=== PATIENT | male | born 1970 | race American Indian/Alaskan Native ===

== ENCOUNTER 2016-07-25 06:04 | Emergency (ER) | payer MEDICAID, OTHER ==
[2016-07-25 08:26] LABS: Basophils % (Auto) 0.5 % (0.0-1.8); Eosinophils % (Auto) 2.3 % (0.0-4.3); Hematocrit 28.8 % (35.5-45.6); Hemoglobin 9.4 gm/dl (11.8-15.2); Mean Corpuscular HGB Conc 33 % (32-34); Mean Corpuscular Hemoglobin 31 pg (28-32); Mean Corpuscular Volume 94 fl (84-94); Platelet Count 379 K/mm3 (140-440); Red Blood Count 3.07 M/mm3 (3.65-5.03); Red Cell Distribution Width 14.4 % (13.2-15.2)
[2016-07-25 08:55] LABS: Anion Gap 18 mmol/L; Blood Urea Nitrogen 10 mg/dL (9-20); Calcium 8.4 mg/dL (8.4-10.2); Carbon Dioxide 24 mmol/L (22-30); Chloride 102.1 mmol/L (98-107); Glucose 110 mg/dL (75-100); Sodium 140 mmol/L (137-145)
[2016-07-25 09:12] LABS: Urine Drugs of Abuse Note Disclamer
[2016-07-25 09:22] LABS: Bilirubin,Urine NEG (Negative); Blood,Urine NEG (Negative); Ketones,Urine TR mg/dL (Negative); Leukocyte Esterase,Urine NEG (Negative); Mucus,Urine 3+ /HPF; Nitrite,Urine NEG (Negative)
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
--- NOTE | 2016-07-25 12:42 | XRay Report ---
Chest 2 views: Compared to 06/23/15. History: Shortness of breath. Findings: Normal cardiomediastinal silhouette. Trachea is midline. Elevated right diaphragm compared to left and compared to previous study. Very faint infiltrates are noted the right lower lobe probably suggestive of pneumonitis. Normal CP angles. Impression: Elevated right diaphragm. Infiltrates right lower lobe.
[2016-07-25] MEDS ORDERED: PROVENTIL IH ONE (14:02)
[2016-07-25] MEDS ORDERED: PERCOCET 5/325 PO ONE (14:02)
[2016-07-25 14:24] VITALS: BP 147/77
[2016-07-25] MEDS ORDERED: ELIQUIS PO ONE (15:27)
--- NOTE | 2016-07-26 07:36 | Vascular Lab Report ---
Right Lower Extremity Venous Duplex Study: Reason for Exam: Right leg swelling. Comments on the Right: Acute deep venous thrombosis is visualized in the peroneal vein extending into the above-knee popliteal vein.. The remaining veins visualized are freely compressible without evidence of internal echogenicity. Spontaneous and phasic flow is present proximally. Comments on the Left: A limited duplex study was done of the proximal veins of the left lower extremity. All veins visualized are freely compressible without evidence of internal echogenicity. Flow is spontaneous and phasic throughout. No evidence of acute or chronic thrombus is seen in any of the vessels visualized. Impression: Acute deep venous thromboses in the right lower extremity.
== END 2016-07-25 16:04 | disposition left against medical advice (07) ==
LOC: ED 06:04
DX: R09.02 Hypoxemia (principal); I82.511 Chronic embolism and thrombosis of right femoral vein; F29 Unspecified psychosis not due to a substance or known physiological condition; Z88.8 Allergy status to other drugs, medicaments and biological substances; I10 Essential (primary) hypertension; F41.9 Anxiety disorder, unspecified; F17.200 Nicotine dependence, unspecified, uncomplicated; F12.10 Cannabis abuse, uncomplicated
CPT/HCPCS: 36415; 71020; 80048; 80307; 81001; 85025; 85379; 93971; 94640; 99284; G0480; 80320

== ENCOUNTER 2018-12-06 21:46 | Inpatient (IN) | payer OTHER ==
--- NOTE | 2018-12-06 21:59 | Event Note ---
ED Screening Note Date of service: 12/06/18 Time: 21:55 ED Screening Note: This is a 48 y.o. M. that presents to the ER with SOB, edema. Reports edema for 1 week. Current smoker 5 cigarettes per day. This initial assessment/diagnostic orders/clinical plan/treatment(s) is/are subject to change based on patients health status, clinical progression and re- assessment by fellow clinical providers in the ED. Further treatment and workup at subsequent clinical providers discretion. Patient/guardian urged not to elope from the ED as their condition may be serious if not clinically assessed and managed. Initial orders include: Labs and CXR
[2018-12-06 22:47] LABS: Basophils # (Auto) 0.1 K/mm3 (0.0-0.1); Basophils % (Auto) 0.5 % (0.0-1.8); Eosinophils # (Auto) 0.1 K/mm3 (0.0-0.4); Eosinophils % (Auto) 1.2 % (0.0-4.3); Hematocrit 36.2 % (35.5-45.6); Hemoglobin 11.5 gm/dl (11.8-15.2); Lymphocytes # (Auto) 0.8 K/mm3 (1.2-5.4); Lymphocytes % (Auto) 6.4 % (13.4-35.0); Mean Corpuscular HGB Conc 32 % (32-34); Mean Corpuscular Volume 95 fl (84-94); Monocytes # (Auto) 1.4 K/mm3 (0.0-0.8); Monocytes % (Auto) 11.1 % (0.0-7.3); Platelet Count 273 K/mm3 (140-440); Red Blood Count 3.81 M/mm3 (3.65-5.03); Red Cell Distribution Width 14.6 % (13.2-15.2)
--- NOTE | 2018-12-06 22:47 | XRay Report ---
CHEST 2 VIEWS INDICATION: chest pain, edema. COMPARISON: 07/25/2016. FINDINGS: Support devices: None. Heart: Cardiac enlargement. Lungs/Pleura: Persistent elevation of the left hemidiaphragm. Bilateral interstitial/airspace disease is greater on the right.. IMPRESSION: Bilateral interstitial/airspace disease. Edema is favored. Signer Name: Satinder Bryson MD Signed: 12/06/2018 10:43 PM Workstation Name: [id number]
[2018-12-06] MEDS: DUONEB *Not for PRN Use IH ONE ×2 (22:54→23:21)
[2018-12-06 23:02] LABS: Alanine Aminotransferase 13 units/L (7-56); Albumin 3.8 g/dL (3.9-5); BUN/Creatinine Ratio 5; Blood Urea Nitrogen 5 mg/dL (9-20); Hemolysis Index 2
[2018-12-07] MEDS ORDERED: NACL 0.9% 1000 ML IV ONE (00:42)
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
--- NOTE | 2018-12-07 01:15 | Cat Scan Report ---
CTA chest with contrast INDICATION : sob with CP. TECHNIQUE: Axial imaging performed through the chest, with contrast bolus timing set to maximize opa cification of the pulmonary arteries. 3-plane MIP reformatted images were obtained. All CT scans at this location are performed using CT dose reduction for ALARA by means of automated exposure control. 100 mL of intravenous contrast administered. COMPARISON: None FINDINGS: Bolus: Contrast bolus timing is adequate. PTE: No filling defect is present to suggest PTE. Mediastinum: Heart and great vessels appear normal. No pathologic mediastinal adenopathy. Lungs: There is patchy consolidation in the right lung greatest in the right lower lobe. Upper abdomen: Limited imaging of the upper abdomen shows nothing acute. Bones: Degenerative changes in the spine with nothing acute. IMPRESSION: 1. Negative for PTE. 2. Patchy consolidation in the right lung suggesting pneumonia. Signer Name: Prateek Corona MD Signed: 12/07/2018 1:10 AM Workstation Name: [id number] [employer]
[2018-12-07] MEDS ORDERED: SODIUM CHLORIDE FLUSH SYRINGE 10 ML IV PRN (01:35)
[2018-12-07] MEDS ORDERED: TYLENOL PO PRN (01:35)
[2018-12-07] MEDS ORDERED: ZOFRAN IV PRN (01:35)
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
[2018-12-07] MEDS ORDERED: MAXIPIME/NS 2 GM/100 ML 2 GM/100 ML BAG IV SCH (02:00)
[2018-12-07] MEDS ORDERED: HABITROL TD ONE (02:19)
[2018-12-07] MEDS ORDERED: MORPHINE IV ONE (05:13)
[2018-12-07] MEDS ORDERED: LASIX IV SCH (06:00)
[2018-12-07 06:04] LABS: Bilirubin,Urine NEG (Negative); Blood,Urine NEG (Negative); Color,Urine Yellow (Yellow); Protein,Urine <15 mg/dL mg/dL (Negative); Urobilinogen,Urine < 2.0 mg/dL (<2.0); WBC,Urine < 1.0 /HPF (0.0-6.0)
[2018-12-07 06:11] LABS: Amphetamine Screen,Urine PRESUMPTIVE NEGATIVE; Benzodiazepines Screen,Urine PRESUMPTIVE NEGATIVE; Methadone Screen,Urine PRESUMPTIVE NEGATIVE; Opiate Screen,Urine PRESUMPTIVE NEGATIVE
[2018-12-07 06:26] LABS: Cannabinoid Screen,Urine PRESUMPTIVE POSITIVE; Cocaine Screen,Urine PRESUMPTIVE POSITIVE
[2018-12-07 08:34] VITALS: BP 118/77
[2018-12-07] MEDS ORDERED: SODIUM CHLORIDE FLUSH SYRINGE 10 ML IV SCH (10:00)
[2018-12-07] MEDS ORDERED: ZITHROMAX 500 MG in NACL 0.9% 250ML 250 ML IV SCH (10:00)
[2018-12-07] MEDS ORDERED: LOVENOX SUB-Q SCH (10:00)
[2018-12-07] MEDS ORDERED: ROCEPHIN/NS 2 GM/100 ML 2 GM/100 ML BAG IV SCH (10:00)
== END 2018-12-07 10:00 | disposition left against medical advice (07) | DRG 871 ==
LOC: ED 21:46 → 4A 12-07 01:35
PROVIDERS: ADMIT Internal Medicine; ATTEND Internal Medicine
PROC: 5A09357 Assistance with Respiratory Ventilation, Less than 24 Consecutive Hours, Continuous Positive Airway Pressure (ICD-10-PCS; principal; 2018-12-07)
PROC: 4A033R1 Measurement of Arterial Saturation, Peripheral, Percutaneous Approach (ICD-10-PCS; 2018-12-07)
DX: A41.9 Sepsis, unspecified organism (principal); J18.9 Pneumonia, unspecified organism; J96.01 Acute respiratory failure with hypoxia; J44.0 Chronic obstructive pulmonary disease with (acute) lower respiratory infection; I11.0 Hypertensive heart disease with heart failure; F14.10 Cocaine abuse, uncomplicated; G47.33 Obstructive sleep apnea (adult) (pediatric); F31.9 Bipolar disorder, unspecified; F10.10 Alcohol abuse, uncomplicated; Y90.9 Presence of alcohol in blood, level not specified; F17.210 Nicotine dependence, cigarettes, uncomplicated; I50.9 Heart failure, unspecified; Z53.21 Procedure and treatment not carried out due to patient leaving prior to being seen by health care provider; Z88.8 Allergy status to other drugs, medicaments and biological substances; Z79.899 Other long term (current) drug therapy; Z86.718 Personal history of other venous thrombosis and embolism; Z80.9 Family history of malignant neoplasm, unspecified; Z82.49 Family history of ischemic heart disease and other diseases of the circulatory system
CPT/HCPCS: 36415; 71046; 71275; 80053; 80307; 81001; 82140; 82550; 82803; 83880; 84484; 85025; 86850; 86900; 86901; 87040; 87116; 93005; 93010; 94644; 94660; 94760; 96374; 99291; 99406; G0378; J0456; J0692; J0696; J1650; J1940; J2270; J7030; J7050; Q9967

== ENCOUNTER 2018-12-07 11:11 | Emergency (ER) | payer MEDICARE, OTHER ==
[2018-12-07] MEDS ORDERED: NACL 0.9% 1000 ML 1,000 ML IV ONE ×2 (11:33→12:17)
[2018-12-07] MEDS ORDERED: ATROVENT IH ONE ×2 (11:33→11:39)
[2018-12-07] MEDS ORDERED: XOPENEX IH ONE (11:35)
[2018-12-07] MEDS ORDERED: LEVALBUTEROL IH ONE (11:39)
[2018-12-07] MEDS ORDERED: ARTIFICIAL TEARS OPHTH OINT OU PRN (11:55)
[2018-12-07] MEDS ORDERED: VASELINE LIP THERAPY TP PRN (11:55)
[2018-12-07] MEDS ORDERED: DIPRIVAN 10 MG/ML 1,000 MG/100 ML BOTTLE IV SCH (12:00)
[2018-12-07 12:07] LABS: INR 1.12 (0.87-1.13)
[2018-12-07 12:08] LABS: Partial Thromboplastin Time 33.6 Sec. (24.2-36.6)
[2018-12-07 12:10] LABS: Creatine Kinase MB 6.4 ng/mL (0.0-4.0)
[2018-12-07 12:11] LABS: BUN/Creatinine Ratio 5; Blood Urea Nitrogen 6 mg/dL (9-20); Calcium 8.6 mg/dL (8.4-10.2); Hemolysis Index 2
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
[2018-12-07 12:14] LABS: Alanine Aminotransferase 14 units/L (7-56); Albumin 3.7 g/dL (3.9-5)
[2018-12-07] MEDS ORDERED: SOLU-Medrol IV ONE (12:15)
[2018-12-07] MEDS ORDERED: MAGNESIUM SULFATE 2GM/50ML 2 GM/50 ML BAG IV ONE (12:15)
--- NOTE | 2018-12-07 12:15 | XRay Report ---
CHEST 1 VIEW INDICATION / CLINICAL INFORMATION: Dyspnea. COMPARISON: 12/06/2018 FINDINGS: Right hemidiaphragm remains elevated. Heart size stable. Increased platelike and linear opacities at the lung bases. Interstitial and nodular opacities on yesterday's radiograph may have improved slight ly. IMPRESSION: Low lung volumes with multifocal platelike atelectasis. Superimposed airspace/interstitia l disease favored to represent mild edema may have partially resolved. Signer Name: Rashid Carlson MD Signed: 12/07/2018 12:11 PM Workstation Name: [id number]
[2018-12-07 12:16] LABS: Bilirubin,Direct < 0.2 mg/dL (0-0.2)
[2018-12-07] MEDS ORDERED: LEVAQUIN 750MG/150ML 750 MG/150 ML BAG IV ONE (12:16)
[2018-12-07 12:31] LABS: Basophils # (Auto) 0.1 K/mm3 (0.0-0.1); Basophils % (Auto) 0.4 % (0.0-1.8); Eosinophils # (Auto) 0.1 K/mm3 (0.0-0.4); Eosinophils % (Auto) 0.9 % (0.0-4.3); Hematocrit 36.1 % (35.5-45.6); Hemoglobin 11.7 gm/dl (11.8-15.2); Lymphocytes # (Auto) 0.6 K/mm3 (1.2-5.4); Lymphocytes % (Auto) 3.7 % (13.4-35.0); Mean Corpuscular HGB Conc 32 % (32-34); Mean Corpuscular Volume 95 fl (84-94); Monocytes # (Auto) 2.1 K/mm3 (0.0-0.8); Monocytes % (Auto) 12.7 % (0.0-7.3); Platelet Count 275 K/mm3 (140-440); Red Blood Count 3.82 M/mm3 (3.65-5.03); Red Cell Distribution Width 14.5 % (13.2-15.2)
[2018-12-07] MEDS ORDERED: VANCOMYCIN PHARMACY TO DOSE IV SCH (13:00)
[2018-12-07] MEDS ORDERED: MERREM 1,000 MG in NACL 0.9% 100 ML IV ONE (13:16)
[2018-12-07] MEDS ORDERED: BABY ASPIRIN PO ONE (13:17)
[2018-12-07 13:57] LABS: Bilirubin,Urine NEG (Negative); Blood,Urine NEG (Negative); Color,Urine Straw (Yellow); Mucus,Urine FEW /HPF; Protein,Urine <15 mg/dL mg/dL (Negative); Urobilinogen,Urine < 2.0 mg/dL (<2.0); WBC,Urine < 1.0 /HPF (0.0-6.0)
[2018-12-07] MEDS ORDERED: NACL 0.9% 1000 ML 1,000 ML ONE (14:31)
[2018-12-07] MEDS ORDERED: BABY ASPIRIN ONE (14:31)
[2018-12-07 16:17] LABS: Amphetamine Screen,Urine PRESUMPTIVE NEGATIVE; Benzodiazepines Screen,Urine PRESUMPTIVE NEGATIVE; Cannabinoid Screen,Urine PRESUMPTIVE NEGATIVE; Methadone Screen,Urine PRESUMPTIVE NEGATIVE; Opiate Screen,Urine PRESUMPTIVE NEGATIVE
[2018-12-07] MEDS ORDERED: ATIVAN IV PRN (16:22)
[2018-12-07] MEDS ORDERED: SODIUM CHLORIDE FLUSH SYRINGE 10 ML IV PRN (16:25)
[2018-12-07] MEDS ORDERED: TYLENOL PO PRN (16:25)
[2018-12-07] MEDS ORDERED: ZOFRAN IV PRN (16:25)
[2018-12-07] MEDS ORDERED: DILAUDID IV PRN (16:30)
[2018-12-07 16:31] LABS: Cocaine Screen,Urine PRESUMPTIVE POSITIVE
[2018-12-07] MEDS ORDERED: PROVENTIL IH PRN (16:32)
[2018-12-07] MEDS ORDERED: DILAUDID ONE (16:48)
[2018-12-07] MEDS ORDERED: NORVASC PO SCH (17:00)
[2018-12-07] MEDS ORDERED: SOLU-Medrol IV SCH (17:00)
[2018-12-07] MEDS ORDERED: NACL 0.9% 1000 ML 1,000 ML IV SCH (17:00)
[2018-12-07] MEDS ORDERED: LEVAQUIN 750MG/150ML 750 MG/150 ML BAG IV SCH (17:00)
[2018-12-07] MEDS ORDERED: VANCOMYCIN 2,000 MG in NACL 0.9% 500 ML 500 ML IV SCH (17:30)
[2018-12-07 19:25] VITALS: BP 155/75
[2018-12-07] MEDS ORDERED: DUONEB *Not for PRN Use IH SCH (20:00)
[2018-12-07] MEDS ORDERED: COLACE PO SCH (22:00)
[2018-12-07] MEDS ORDERED: PEPCID IV SCH (22:00)
[2018-12-07] MEDS ORDERED: SODIUM CHLORIDE FLUSH SYRINGE 10 ML IV SCH (22:00)
[2018-12-07] MEDS ORDERED: RisperDAL PO SCH (22:00)
== END 2018-12-07 19:20 | disposition admitted as inpatient to this hospital (09) ==
LOC: ED 11:11 → IMCU 13:19 → UNDOADMIN 13:19 → ED 19:20 → 4A 19:55 → IMCU 19:55
DX: J18.9 Pneumonia, unspecified organism (principal); J96.01 Acute respiratory failure with hypoxia; J96.21 Acute and chronic respiratory failure with hypoxia; F31.9 Bipolar disorder, unspecified; I10 Essential (primary) hypertension; J44.9 Chronic obstructive pulmonary disease, unspecified; F17.200 Nicotine dependence, unspecified, uncomplicated; Z79.899 Other long term (current) drug therapy; Z91.09 Other allergy status, other than to drugs and biological substances
CPT/HCPCS: 36415; 71045; 80048; 80076; 80307; 81001; 82140; 82550; 82553; 82803; 83036; 83735; 83880; 84484; 85025; 85379; 85610; 85730; 87040; 93005; 93010; 94640; 94660; 96361; 96365; 96367; 96375; 99291; J1170; J1956; J2185; J2930; J3370; J3475; J7030; J7040; 94644